=== PATIENT | male | born 1975 | race Two or more races ===

== ENCOUNTER 2018-09-01 08:33 | Inpatient (IN) | payer SELFPAY ==
[2018-09-01] MEDS ORDERED: NS 1,000 ML IV ONE (09:08)
[2018-09-01] MEDS ORDERED: CEFEPIME HCL 2 GM in NS 100 ML IV ONE (09:41)
[2018-09-01] MEDS ORDERED: NS 2,400 ML IV ONE (09:41)
--- NOTE | 2018-09-01 09:41 | EDPHY ---
H & P Time Seen by Provider: 09/01/18 08:54 HPI/ROS: CHIEF COMPLAINT: Abdominal pain HISTORY OF PRESENT ILLNESS: Patient is Luxembourgish-speaking only, history obtained with use correctional supervisor gala Bertrand RN. Patient states "a lot of pain". He states began about 2 days ago with pain in epigastrium with chills and myalgias. Also body aches and headache. He states he was a little bit better yesterday but began to feel worse again last night with nausea, vomiting x6 and diarrhea. He denies blood in the vomit or stool. He states he had a similar episode that was not as bad about 8 months ago. Pain is epigastric and generalized. He states he does have some back pain especially with standing. He also states he has had some dysuria today. REVIEW OF SYSTEMS: Constitutional: Per HPI Eyes: No discharge. ENT: No sore throat. Cardiovascular: No chest pain, no palpitations. Respiratory: No cough, no shortness of breath. Gastrointestinal: Per HPI Genitourinary: Per HPI Musculoskeletal: Per HPI Skin: No rashes. Neurological: No numbness or weakness, no vision changes. General Appearance: Alert, significant distress, febrile, tachycardic. Eyes: Pupils equal and round no pallor or injection. ENT, Mouth: Mucous membranes dry. Respiratory: There are no retractions, lungs are clear to auscultation. Cardiovascular: Tachycardic, no murmurs rubs or gallops. Gastrointestinal: Abdomen is mildly distended, diffusely tender to palpation with some voluntary guarding. Neurological: Awake alert, cranial nerves intact, no focal neurologic deficits. Skin: Warm and dry, no rashes. Musculoskeletal: Neck is supple nontender. Extremities are symmetrical, full range of motion, no edema. Psychiatric: Patient is oriented X 3, there is no agitation. Medical/surgical history: Appendectomy. Social history: Use tobacco, social alcohol. Smoking Status: Current some day smoker Constitutional: Initial Vital Signs Temperature (C) 38.2 C 09/01/18 08:40 Heart Rate 123 H 09/01/18 08:40 Respiratory Rate 18 09/01/18 08:40 Blood Pressure 117/72 09/01/18 08:40 O2 Sat (%) 93 09/01/18 08:40 O2 Delivery Mode Nasal Cannula O2 (L/minute) 2 Allergies/Adverse Reactions: No Known Allergies Allergy (Verified 09/01/18 11:14) Home Medications: Medication Instructions Recorded Ibuprofen [Motrin (*)] 200 mg PO DAILY PRN 09/01/18 Medical Decision Making - Diagnostics Imaging Results: Imaging Impressions Abdomen CT 09/01/18 09:43 Impression: Suspicious for mild left sided colitis. No obstruction, perforation , abscess or evidence for cholangitis. Results discussed with Dr. Wallace at 11:13 AM. General information for patients regarding this examination can be found at [email or web address]. If you have questions or comments about this report, please contact me at (hospital) or [phone] (cell). Abdomen Ultrasound 09/01/18 09:44 Impression: 1. Mild/moderate hepatic steatosis. 2. Normal appearance of the gallbladder, with no gallstones, cholecystitis, or bile duct dilatation. 3. Technically limited evaluation of the pancreas, portions of the abdominal aorta, and portions of the left hepatic lobe secondary to overlying bowel gas. Findings were discussed with Zena Wallace MD at 10:44, on 09/01/2018. She has also requested contrast-enhanced CT imaging of the abdomen and pelvis, which will be subsequently performed and separately reported. Imaging: Discussed imaging studies w/ bilingual call center representative Radiologist ED Course/Re-evaluation: 9:30 a.m. Sepsis criteria met initiate, sepsis evaluation. Multiple re-evaluation shows patient improved, pain resolved. Tachycardia resolving. Discussed with radiologist CT scan results colitis present. Discussed with radiologist ultrasound results no acute findings. Discussed with hospitalist, Sun, will be admitted to Dr. Brar. Differential Diagnosis: Differential diagnosis includes but is not limited to cholecystitis, cholangitis , perforation, colitis, pancreatitis. After evaluation patient with colitis, unlikely C diff as has no risk factors. No evidence of gallbladder or other biliary tree etiology. No pancreatitis. Patient improved but still ill- appearing and will need admission for further monitoring and treatment. Discussed with hospitalist. Improved to the floor. - Data Points Laboratory Results: Laboratory Results 09/01/18 08:54 09/01/18 08:54 09/01/18 09/01/18 09/01/18 11:25 11:10 09:45 WBC RBC Hgb Hct MCV MCH MCHC RDW Plt Count MPV Neut % (Auto) Lymph % (Auto) [place] % (Auto) Eos % (Auto) Baso % (Auto) Nucleat RBC Rel Count Absolute Neuts (auto) Absolute Lymphs (auto) Absolute Monos (auto) Absolute Eos (auto) Absolute Basos (auto) Absolute Nucleated RBC Immature Gran % Immature Gran # PT INR APTT VBG Lactic Acid 0.9 mmol/L mmol/L (0.7-2.1) Sodium Potassium Chloride Carbon Dioxide Anion Gap BUN Creatinine Estimated GFR Glucose Calcium Total Bilirubin AST ALT Alkaline Phosphatase Total Protein Albumin Lipase Urine Color YELLOW Urine Appearance CLEAR Urine pH 5.0 (5.0-7.5) Ur Specific [place] 1.019 (1.002-1.030) Urine Protein NEGATIVE (NEGATIVE) Urine Ketones 1+ H (NEGATIVE) Urine Blood 1+ H (NEGATIVE) Urine Nitrate NEGATIVE (NEGATIVE) Urine Bilirubin NEGATIVE (NEGATIVE) Urine Urobilinogen NEGATIVE EU EU (0.2-1.0) Ur Leukocyte Esterase NEGATIVE (NEGATIVE) Urine RBC 1-3 /hpf /hpf (0-3) Urine WBC 1-3 /hpf /hpf (0-3) Ur Epithelial Cells NONE SEEN /lpf /lpf (NONE-1+) Urine Mucus TRACE /lpf /lpf (NONE-1+) Urine Glucose NEGATIVE (NEGATIVE) Nasal Influenza A PCR NEGATIVE FOR FLU A (NEGATIVE) Nasal Influenza B PCR NEGATIVE FOR FLU B (NEGATIVE) 09/01/18 09/01/18 09/01/18 08:54 08:54 08:54 WBC 15.61 10^3/uL H 10^3/uL (3.80-9.50) RBC 5.55 10^6/uL 10^6/uL (4.40-6.38) Hgb 15.6 g/dL g/dL (13.7-17.5) Hct 45.9 % % (40.0-51.0) MCV 82.7 fL fL (81.5-99.8) MCH 28.1 pg pg (27.9-34.1) MCHC 34.0 g/dL g/dL (32.4-36.7) RDW 13.8 % % (11.5-15.2) Plt Count 241 10^3/uL 10^3/uL (150-400) MPV 10.5 fL fL (8.7-11.7) Neut % (Auto) 86.3 % H % (39.3-74.2) Lymph % (Auto) 6.7 % L % (15.0-45.0) [place] % (Auto) 6.1 % % (4.5-13.0) Eos % (Auto) 0.0 % L % (0.6-7.6) Baso % (Auto) 0.3 % % (0.3-1.7) Nucleat RBC Rel Count 0.0 % % (0.0-0.2) Absolute Neuts (auto) 13.48 10^3/uL H 10^3/uL (1.70-6.50) Absolute Lymphs (auto) 1.04 10^3/uL 10^3/uL (1.00-3.00) Absolute Monos (auto) 0.96 10^3/uL H 10^3/uL (0.30-0.80) Absolute Eos (auto) 0.00 10^3/uL L 10^3/uL (0.03-0.40) Absolute Basos (auto) 0.04 10^3/uL 10^3/uL (0.02-0.10) Absolute Nucleated RBC 0.00 10^3/uL 10^3/uL (0-0.01) Immature Gran % 0.6 % % (0.0-1.1) Immature Gran # 0.09 10^3/uL 10^3/uL (0.00-0.10) PT 14.4 SEC SEC (12.0-15.0) INR 1.10 (0.83-1.16) APTT 28.4 SEC SEC (23.0-38.0) VBG Lactic Acid Sodium 133 mEq/L L mEq/L (135-145) Potassium 3.8 mEq/L mEq/L (3.5-5.2) Chloride 106 mEq/L mEq/L (97-110) Carbon Dioxide 17 mEq/l L mEq/l (22-31) Anion Gap 10 mEq/L mEq/L (6-14) BUN 17 mg/dL mg/dL (7-23) Creatinine 1.1 mg/dL mg/dL (0.7-1.3) Estimated GFR > 60 Glucose 111 mg/dL H mg/dL (70-100) Calcium 8.9 mg/dL mg/dL (8.5-10.4) Total Bilirubin 1.1 mg/dL mg/dL (0.1-1.4) AST 45 IU/L IU/L (17-59) ALT 65 IU/L IU/L (21-72) Alkaline Phosphatase 77 IU/L IU/L (38-126) Total Protein 8.1 g/dL g/dL (6.3-8.2) Albumin 4.6 g/dL g/dL (3.5-5.0) Lipase 198 IU/L IU/L (23-300) Urine Color Urine Appearance Urine pH Ur Specific [place] Urine Protein Urine Ketones Urine Blood Urine Nitrate Urine Bilirubin Urine Urobilinogen Ur Leukocyte Esterase Urine RBC Urine WBC Ur Epithelial Cells Urine Mucus Urine Glucose Nasal Influenza A PCR Nasal Influenza B PCR Medications Given: Fentanyl (Sublimaze) 50 mcg IVP Q45M PRN PRN Reason: Pain, Severe Unable to Take PO Last Admin: 09/01/18 11:05 Dose: 50 mcg Ondansetron HCl (Zofran) 4 mg IVP Q15M PRN PRN Reason: Nausea/Vomiting, Can't Take PO Last Admin: 09/01/18 09:52 Dose: 4 mg Discontinued Medications Acetaminophen (Tylenol) 1,000 mg PO EDNOW ONE Stop: 09/01/18 09:46 Last Admin: 09/01/18 09:52 Dose: 1,000 mg Sodium Chloride (Ns) 1,000 mls @ 0 mls/hr IV ONCE ONE PRN Reason: Wide Open Stop: 09/01/18 09:09 Last Admin: 09/01/18 09:22 Dose: 1,000 mls Cefepime HCl 2 gm/ Sodium (Chloride) 100 mls @ 200 mls/hr IV EDNOW ONE PRN Reason: Protocol Stop: 09/01/18 10:10 Last Admin: 09/01/18 10:28 Dose: 100 mls Sodium Chloride (Ns) 2,400 mls @ 4,800 mls/hr 30 ml/kg infuse over 30 min ( 2400 ml) IV EDNOW ONE PRN Reason: Protocol Stop: 09/01/18 10:10 Last Admin: 09/01/18 09:53 Dose: 2,400 mls Departure - Departure Disposition: [facility] Acute Condition: Fair
[2018-09-01] MEDS ORDERED: ACETAMINOPHEN 500 MG TAB PO ONE (09:45)
[2018-09-01] MEDS ORDERED: ONDANSETRON 4 MG/2 ML VIAL IVP PRN ×2 (09:45→16:11)
[2018-09-01] MEDS: fentaNYL 100 MCG/2 ML INJ IVP PRN ×2 (09:52→11:05)
[2018-09-01 10:03] LABS: PLATELET COUNT 241 10^3/uL (150-400)
[2018-09-01 10:13] LABS: INR 1.1 (0.83-1.16); PROTIME(PATIENT) 14.4 SEC (12.0-15.0)
[2018-09-01] MEDS ORDERED: IOPAMIDOL (ISOVUE-300) 100 ML BTL ONE (10:34)
[2018-09-01] MEDS ORDERED: HYDROmorphONE/DILAUDID 1 MG/ML INJ IVP PRN ×2 (14:49→16:16)
[2018-09-01] MEDS ORDERED: ONDANSETRON DISINTEGRATING 4 MG TAB PO PRN (16:11)
[2018-09-01] MEDS ORDERED: NS 1,000 ML IV SCH (16:15)
[2018-09-01] MEDS ORDERED: PIPERACILLIN/TAZO 3.375 GM/DEX 50 ML IV SCH (16:15)
--- NOTE | 2018-09-01 16:22 | PDGENHP ---
History and Physical - Chief Complaint fever, abdominal pain - History of Present Illness 42 yo male, Hungarian speaking only, p/w abdominal pain, diarrhea, fever, tachycardia x 2 days. Now with diaphoresis and chills. Met Sepsis criteria in the ER. Blood culture obtained. Given fluids and Cefepime. CT A/p shows left sided colitis. He reports similar history 8 months ago, had fever at that time as well, did not go to a doctor. Diarrhea present x 2 day. NO recent travel. Abd pain worse over the past 2 days. diarrhea is non bloody. NO hx of recent abx use. no hx of c-diff no cp or sob. does have a cough. no rhinorrhea. cough present for several days. Requiring 2 L O2 PMH/PSHx: appendectomy Soc: occasional tobacco and ETOH FmHx: non contributory History Information - Allergies/Home Medication List Allergies/Adverse Reactions: No Known Allergies Allergy (Verified 09/01/18 11:14) Home Medications: Ibuprofen [Motrin (*)] 200 mg PO DAILY PRN 09/01/18 [Last Taken Unknown] I have personally reviewed and updated: medical history, social history - Social History Smoking Status: Former smoker Review of Systems Review of Systems: ROS: 10pt was reviewed & negative except for what was stated in HPI & below Physical Exam Physical Exam: Temp Pulse Resp BP Pulse Ox 39.4 C H 118 H 18 110/59 L 92 09/01/18 15:30 09/01/18 15:30 09/01/18 15:30 09/01/18 15:30 09/01/18 15:30 O2 (L/minute) 2 Constitutional: no apparent distress Eyes: PERRL, EOMI Ears, Nose, Mouth, Throat: dry mucous membranes Cardiovascular: regular rate and rhythym, No edema Respiratory: no respiratory distress, no rales or rhonchi, clear to auscultation Gastrointestinal: normoactive bowel sounds, tenderness (generalized and Left sided), No distension Skin: warm Neurologic: AAOx3 Psychiatric: interacting appropriately, not anxious, not encephalopathic Lymph, Heme, Immunologic: No petechiae Lab Data & Imaging Review 09/01/18 08:54 09/01/18 08:54 WBC 15.61 10^3/uL (3.80-9.50) H 09/01/18 08:54 RBC 5.55 10^6/uL (4.40-6.38) 09/01/18 08:54 Hgb 15.6 g/dL (13.7-17.5) 09/01/18 08:54 Hct 45.9 % (40.0-51.0) 09/01/18 08:54 MCV 82.7 fL (81.5-99.8) 09/01/18 08:54 MCH 28.1 pg (27.9-34.1) 09/01/18 08:54 MCHC 34.0 g/dL (32.4-36.7) 09/01/18 08:54 RDW 13.8 % (11.5-15.2) 09/01/18 08:54 Plt Count 241 10^3/uL (150-400) 09/01/18 08:54 MPV 10.5 fL (8.7-11.7) 09/01/18 08:54 Neut % (Auto) 86.3 % (39.3-74.2) H 09/01/18 08:54 Lymph % (Auto) 6.7 % (15.0-45.0) L 09/01/18 08:54 [place] % (Auto) 6.1 % (4.5-13.0) 09/01/18 08:54 Eos % (Auto) 0.0 % (0.6-7.6) L 09/01/18 08:54 Baso % (Auto) 0.3 % (0.3-1.7) 09/01/18 08:54 Nucleat RBC Rel Count 0.0 % (0.0-0.2) 09/01/18 08:54 Absolute Neuts (auto) 13.48 10^3/uL (1.70-6.50) H 09/01/18 08:54 Absolute Lymphs (auto) 1.04 10^3/uL (1.00-3.00) 09/01/18 08:54 Absolute Monos (auto) 0.96 10^3/uL (0.30-0.80) H 09/01/18 08:54 Absolute Eos (auto) 0.00 10^3/uL (0.03-0.40) L 09/01/18 08:54 Absolute Basos (auto) 0.04 10^3/uL (0.02-0.10) 09/01/18 08:54 Absolute Nucleated RBC 0.00 10^3/uL (0-0.01) 09/01/18 08:54 Immature Gran % 0.6 % (0.0-1.1) 09/01/18 08:54 Immature Gran # 0.09 10^3/uL (0.00-0.10) 09/01/18 08:54 PT 14.4 SEC (12.0-15.0) 09/01/18 08:54 INR 1.10 (0.83-1.16) 09/01/18 08:54 APTT 28.4 SEC (23.0-38.0) 09/01/18 08:54 VBG Lactic Acid 0.9 mmol/L (0.7-2.1) 09/01/18 09:45 Sodium 133 mEq/L (135-145) L 09/01/18 08:54 Potassium 3.8 mEq/L (3.5-5.2) 09/01/18 08:54 Chloride 106 mEq/L (97-110) 09/01/18 08:54 Carbon Dioxide 17 mEq/l (22-31) L 09/01/18 08:54 Anion Gap 10 mEq/L (6-14) 09/01/18 08:54 BUN 17 mg/dL (7-23) 09/01/18 08:54 Creatinine 1.1 mg/dL (0.7-1.3) 09/01/18 08:54 Estimated GFR > 60 09/01/18 08:54 Glucose 111 mg/dL (70-100) H 09/01/18 08:54 Calcium 8.9 mg/dL (8.5-10.4) 09/01/18 08:54 Total Bilirubin 1.1 mg/dL (0.1-1.4) 09/01/18 08:54 AST 45 IU/L (17-59) 09/01/18 08:54 ALT 65 IU/L (21-72) 09/01/18 08:54 Alkaline Phosphatase 77 IU/L (38-126) 09/01/18 08:54 Total Protein 8.1 g/dL (6.3-8.2) 09/01/18 08:54 Albumin 4.6 g/dL (3.5-5.0) 09/01/18 08:54 Lipase 198 IU/L (23-300) 09/01/18 08:54 Urine Color YELLOW 09/01/18 11:25 Urine Appearance CLEAR 09/01/18 11:25 Urine pH 5.0 (5.0-7.5) 09/01/18 11:25 Ur Specific [place] 1.019 (1.002-1.030) 09/01/18 11:25 Urine Protein NEGATIVE (NEGATIVE) 09/01/18 11:25 Urine Ketones 1+ (NEGATIVE) H 09/01/18 11:25 Urine Blood 1+ (NEGATIVE) H 09/01/18 11:25 Urine Nitrate NEGATIVE (NEGATIVE) 09/01/18 11:25 Urine Bilirubin NEGATIVE (NEGATIVE) 09/01/18 11:25 Urine Urobilinogen NEGATIVE EU (0.2-1.0) 09/01/18 11:25 Ur Leukocyte Esterase NEGATIVE (NEGATIVE) 09/01/18 11:25 Urine RBC 1-3 /hpf (0-3) 09/01/18 11:25 Urine WBC 1-3 /hpf (0-3) 09/01/18 11:25 Ur Epithelial Cells NONE SEEN /lpf (NONE-1+) 09/01/18 11:25 Urine Mucus TRACE /lpf (NONE-1+) 09/01/18 11:25 Urine Glucose NEGATIVE (NEGATIVE) 09/01/18 11:25 Nasal Influenza A PCR NEGATIVE FOR FLU A (NEGATIVE) 09/01/18 11:10 Nasal Influenza B PCR NEGATIVE FOR FLU B (NEGATIVE) 09/01/18 11:10 Assessment & Plan Assessment: #Sepsis, per criteria, source GI #Left sided colitis #Diarrhea #Fever #Leukocytosis #Metabolic Acidosis #Dehydration #Cough The pt appears to have early sepsis. BP is stable. Overall reports feeling better since getting IVF. Will provide additional fluids now. Lactic acid was not checked, will check now. Cefepime not the most optimal choice, will change to Zosyn for now pending cultures and response. Stool PCR ordered. He is making modest amount of urine. Tachycardia is improving. Will hold off on central line at this time. obtain CXR and resp PCR f/u blood cultures Pain mgm Clears
[2018-09-01] MEDS: ACETAMINOPHEN 325 MG TAB PO PRN (16:25)
[2018-09-01] MEDS: PIPERACILLIN/TAZO 3.375 GM/DEX 50 ML IV SCH ×2 (16:31→21:52)
[2018-09-01] MEDS: oxyCODONE IR 5 MG TAB PO PRN ×2 (17:00→20:23)
[2018-09-02] MEDS: oxyCODONE IR 5 MG TAB PO PRN ×4 (04:24→20:57)
[2018-09-02] MEDS: PIPERACILLIN/TAZO 3.375 GM/DEX 50 ML IV SCH ×2 (04:24→10:33)
[2018-09-02 05:43] LABS: PLATELET COUNT 180 10^3/uL (150-400)
[2018-09-02] MEDS: ACETAMINOPHEN 325 MG TAB PO PRN ×2 (08:52→12:45)
[2018-09-02] MEDS: PANTOPRAZOLE SODIUM 40 MG VIAL IVP SCH ×2 (10:33→20:57)
--- NOTE | 2018-09-02 11:38 | HOSPPROG ---
Hospitalist Progress Note Assessment/Plan: #Sepsis, per criteria, source GI #Left sided colitis #Diarrhea -Culture consistent with campylobacter #Fever, resolved #Leukocytosis, resolved #Metabolic Acidosis, resolved #Dehydration #Cough, resolved, negative CXR and negative resp pcr Plan: Typically we would not treat Campylobacter diarrhea but given the pt's presentation of sepsis, distended abd, diarrhea, fever, leukocytosis all of which are improving with the initiation of antibiotics, we will continue abx for a total of 3 days. We will stop Zosyn and transition to Azithromycin. Volume status is much better, trial off IVF Will advance diet, slowly. f/u blood cultures Pain mgmt Subjective: no cp or sob. still with diarrhea improving. much improved abd distention, still with some pain which is also improved. afebrile Objective: Vital Signs Temp Pulse Resp BP Pulse Ox 36.7 C 79 14 106/68 96 09/02/18 08:00 09/02/18 08:00 09/02/18 08:00 09/02/18 08:00 09/02/18 08:00 Microbiology 09/01/18 18:35 Gastrointestinal Tract Panel (PCR) - Final Stool Campylobacter Species Laboratory Results 09/02/18 04:35 09/02/18 04:35 09/01/18 09/02/18 09/03/18 05:59 05:59 05:59 Intake Total 1000 Balance 1000 PT 14.4 SEC (12.0-15.0) 09/01/18 08:54 INR 1.10 (0.83-1.16) 09/01/18 08:54 - Physical Exam Constitutional: no apparent distress Eyes: PERRL, EOMI Ears, Nose, Mouth, Throat: moist mucous membranes, hearing normal Cardiovascular: regular rate and rhythym, No edema Respiratory: no respiratory distress, no rales or rhonchi, clear to auscultation Gastrointestinal: tenderness (mild generalized), No distension Skin: warm Musculoskeletal: full muscle strength Neurologic: AAOx3 Psychiatric: interacting appropriately, not anxious, not encephalopathic Lymph, Heme, Immunologic: No petechiae ICD10 Worksheet Patient Problems: Problems Problem Status Onset Colitis Acute - ICD10 Problem Qualifiers (1) Colitis
[2018-09-02] MEDS: AZITHROMYCIN 250 MG TAB PO SCH (12:40)
--- NOTE | 2018-09-02 14:27 | PDMN ---
Medical Necessity Medical necessity: MCG; M170 gastroenteritis: A-2 days; pt wth sig. diarrhea , sepsis, distended abdomen, fever, leukocytosis, status changed to INPT for ongoing med nec care > 2 MN.- pt still with sig diarrhea- much improved - with need for further monitoring and abx.
--- NOTE | 2018-09-02 16:57 | ASMTCMCOM ---
CM Note CM Note Notes: Reviewed chart, pt admitted for abdominal pain. Pt normally independent and works, anticipate will dc home w/support of when medically stable. CM available for any changes. DC Plan: Independent Date Signed: 09/02/2018 04:57 PM Electronically Signed By:Esmer Mg RN
[2018-09-03] MEDS: ACETAMINOPHEN 325 MG TAB PO PRN (02:21)
[2018-09-03] MEDS: oxyCODONE IR 5 MG TAB PO PRN (04:17)
[2018-09-03 07:37] VITALS: BP 110/72
[2018-09-03] MEDS: PANTOPRAZOLE SODIUM 40 MG VIAL IVP SCH (08:20)
[2018-09-03] MEDS: AZITHROMYCIN 250 MG TAB PO SCH (08:20)
--- NOTE | 2018-09-03 11:54 | PDDCSUM ---
Discharge Summary Discharge Summary: 42 yo male presented with abd pain and symptoms/findings meeting Sepsis criteria. He was hospitalized. He was given standard sepsis IV Hydration per protocol. A CT revealed left sided colitis. Given his sepsis presentation he was empirically stared on broad spectrum antibiotics and these were eventually narrowed to Azithromycin given the finding of profound diarrhea and colitis with positive Campylobacter. Diet was advance and he is on a regular diet Abd pain is mild at this time. He has not had fever recurrence. He is ready for d/c. Needs one more day of abx. Pain meds provided He will f/u with his PCP next week. DDx: #Sepsis, per criteria, source GI, resolved #Left sided colitis, resolving #Diarrhea, resolfing -Culture consistent with campylobacter -Typically we would not treat Campylobacter diarrhea but given the pt's presentation of sepsis, distended abd, diarrhea, fever, leukocytosis all of which are improved with the initiation of antibiotics, we will continue abx for a total of 3 days #Fever, resolved #Leukocytosis, resolved #Metabolic Acidosis, resolved #Dehydration, resolved #Cough, resolved, negative CXR and negative resp pcr Exam: VSS NAD AAOX3 RRR CTA B S/NT/ND MEDS: SEE MED REC TOTAL TIME SPENT ON D/C IS 35 MINS
== END 2018-09-03 11:42 | disposition home or self-care (01) | DRG 872 ==
LOC: F3E 12:37 → OBSVTOIN 09-02 14:05
PROVIDERS: ADMIT Family Medicine; ATTEND Family Medicine
DX: A41.9 Sepsis, unspecified organism (principal); A04.5 Campylobacter enteritis; E87.2 Acidosis; E86.0 Dehydration; R05 Cough
CPT/HCPCS: 96365; G0378; J0692; J1170; J2405; J2543; J3010; Q9967